=== PATIENT | female | born 1950 | race Caucasian/White ===

== ENCOUNTER 2017-03-23 11:13 | Inpatient (IN) | payer MEDICARE, MEDICAID ==
[~2017-03-23] VITALS: Ht 160 cm; Wt 57.5 kg
[~2017-03-23 11:13] MED LIST: ALBU2.5V13 NEB; ALEN70TA3 PO; ASCO500C15 PO; ATR0.5NEB IH; CALC-1051 PO; CARV-49 PO; DOCU-28 PO; HYDR-3964 PO; LEVO100T9 PO; SPIIN INH
[2017-03-23 11:48] LABS: BASOPHILS % (AUTO) 0.4 % (0-1); EOSINOPHILS # (AUTO) 0.3 X10'3 (0-0.9); EOSINOPHILS % (AUTO) 2.1 % (0-6); HEMATOCRIT 39.2 % (35.0-45.0); LYMPHOCYTES % (AUTO) 7.9 % (21-51); MEAN CORPUSCULAR HEMOGLOBIN 30.3 PG (27.0-31.0); MEAN CORPUSCULAR HGB CONC 33.2 % (33.0-36.5); MEAN CORPUSCULAR VOLUME 91.3 FL (78-98); MEAN PLATELET VOLUME 8.3 FL (7.4-10.4); MONOCYTES # (AUTO) 0.5 X10'3 (0-0.9); MONOCYTES % (AUTO) 4.5 % (2-12); NEUTROPHILS # (AUTO) 10.3 X10'3 (1.8-7.7); NEUTROPHILS % (AUTO) 85.1 % (42-75); PLATELET COUNT 169 X10'3 (140-440); RED BLOOD COUNT 4.29 X10'6 (4.20-5.60); RED CELL DISTRIBUTION WIDTH 13.2 % (11.5-14.5); WHITE BLOOD COUNT 12.1 X10'3 (4.5-11.0)
[2017-03-23 11:58] LABS: INR 1.1 INR; PARTIAL THROMBOPLASTIN TIME 30 SECONDS (22-32); PROTHROMBIN TIME 10.9 SECONDS (9.0-12.0)
[2017-03-23 12:03] LABS: ALANINE AMINOTRANSFERASE 16 U/L (12-78); ALBUMIN 3.2 G/DL (3.4-5.0); ALBUMIN/GLOBULIN RATIO 0.8 (1.1-1.5); ALKALINE PHOSPHATASE 122 IU/L (46-116); ANION GAP 8 (8-16); ASPARTATE AMINO TRANSFERASE 23 U/L (10-37); BILIRUBIN,TOTAL 1.1 MG/DL (0.1-1.0); BLOOD UREA NITROGEN 14 MG/DL (7-18); BUN/CREATININE RATIO 14.4 (6.6-38.0); CALCIUM 8.8 MG/DL (8.5-10.1); CHLORIDE 103 MMOL/L (99-107); CREATININE 0.97 MG/DL (0.40-0.90); GLUCOSE 124 MG/DL (70-104); POTASSIUM 3.7 MMOL/L (3.5-5.1); SODIUM 138 MMOL/L (135-145); TOTAL CARBON DIOXIDE 26.9 MMOL/L (24-32); TOTAL PROTEIN 7.3 G/DL (6.4-8.2); eGFR 57 ML/MIN
[2017-03-23] MEDS ORDERED: normal saline 1000ML IV soln IVB ONE (12:05)
[2017-03-23] MEDS ORDERED: ipratropium/albuterol 3ml nebule NEB ONE (12:05)
[2017-03-23] MEDS ORDERED: methylPREDNISolone sod succ 125mg/2ml vial IV ONE (12:05)
[2017-03-23 12:10] LABS: MAGNESIUM 1.8 MG/DL (1.5-2.4)
[2017-03-23] MEDS ORDERED: furosemide 10 MG/1 ML 10ml inj IV ONE (12:50)
[2017-03-23] MEDS ORDERED: normal saline 1000ml 1,000 ML IV SCH (13:08)
[2017-03-23] MEDS ORDERED: non-formulary drug (Alendronate Sodium (Fosamax) 1 TAB) PO SCH (13:10)
[2017-03-23] MEDS ORDERED: diphenhydrAMINE 50 mg/ml inj IV PRN (13:10)
[2017-03-23] MEDS ORDERED: diphenhydrAMINE 25mg capsule PO PRN (13:10)
[2017-03-23] MEDS ORDERED: metoclopramide 5 mg/ml inj IV PRN (13:10)
[2017-03-23] MEDS ORDERED: ondansetron/PF 4mg/2ml inj IV PRN (13:10)
[2017-03-23] MEDS ORDERED: acetaminophen 650mg rectal suppository RC PRN (13:10)
[2017-03-23] MEDS ORDERED: acetaminophen 325mg tablet PO PRN ×2 (13:10)
[2017-03-23] MEDS ORDERED: magnesium hydroxide 30ml (MOM) UD suspension PO PRN (13:10)
[2017-03-23] MEDS ORDERED: bisacodyl 10mg suppository rectal RC PRN (13:10)
[2017-03-23] MEDS ORDERED: mag hydrox/Alum hydrox/simeth 30ml oral suspension PO PRN (13:10)
[2017-03-23] MEDS ORDERED: cefTRIAXone 1g/NS 100ml IVPB 100 ML IV SCH (13:22)
[2017-03-23] MEDS: azithromycin 250mg tablet PO SCH (14:21)
[2017-03-23] MEDS: HYDROcodone/acetaminophen 5mg/325mg tablet PO PRN ×2 (14:21→23:50)
[2017-03-23] MEDS ORDERED: CLOP75TA15 PO (15:48)
[2017-03-23 16:13] VITALS: BP 153/93
[2017-03-23] MEDS: lactobacillus rhamnosus 10,000 MMU CELLS/CAPSULE PO SCH (17:51)
[2017-03-23] MEDS: ipratropium 0.5 MG/2.5ML nebule IH SCH ×2 (19:00→20:06)
[2017-03-23] MEDS: carVEDilol 3.125mg tablet PO SCH (19:38)
[2017-03-23] MEDS: methylPREDNISolone sod succ 125mg/2ml vial IV SCH (19:38)
[2017-03-23] MEDS: docusate sod 100mg capsule PO SCH (19:39)
[2017-03-23] MEDS: heparin, porcine 5000 units/ml vial SQ SCH (19:40)
[2017-03-23 20:08] VITALS: BP 125/79
[2017-03-23] MEDS ORDERED: temazepam 15mg capsule PO PRN (21:00)
[2017-03-24] VITALS: BP 126/71
[2017-03-24] MEDS: ipratropium/albuterol 3ml nebule NEB PRN (04:57)
[2017-03-24 05:12] LABS: BASOPHILS % (AUTO) 0.2 % (0-1); EOSINOPHILS # (AUTO) 0.1 X10'3 (0-0.9); EOSINOPHILS % (AUTO) 1.4 % (0-6); LYMPHOCYTES # (AUTO) 0.8 X10'3 (1.1-4.8); LYMPHOCYTES % (AUTO) 11.5 % (21-51); MEAN CORPUSCULAR HEMOGLOBIN 29.9 PG (27.0-31.0); MEAN CORPUSCULAR HGB CONC 32.6 % (33.0-36.5); MEAN CORPUSCULAR VOLUME 91.8 FL (78-98); MEAN PLATELET VOLUME 8.6 FL (7.4-10.4); MONOCYTES # (AUTO) 0.1 X10'3 (0-0.9); NEUTROPHILS # (AUTO) 6.2 X10'3 (1.8-7.7); NEUTROPHILS % (AUTO) 85.9 % (42-75); PLATELET COUNT 170 X10'3 (140-440); RED BLOOD COUNT 4.36 X10'6 (4.20-5.60); RED CELL DISTRIBUTION WIDTH 13.6 % (11.5-14.5); WHITE BLOOD COUNT 7.3 X10'3 (4.5-11.0)
[2017-03-24 05:53] LABS: ALANINE AMINOTRANSFERASE 15 U/L (12-78); ALBUMIN 2.8 G/DL (3.4-5.0); ALBUMIN/GLOBULIN RATIO 0.7 (1.1-1.5); ALKALINE PHOSPHATASE 116 IU/L (46-116); ANION GAP 9 (8-16); ASPARTATE AMINO TRANSFERASE 19 U/L (10-37); BILIRUBIN,TOTAL 0.7 MG/DL (0.1-1.0); BLOOD UREA NITROGEN 18 MG/DL (7-18); BUN/CREATININE RATIO 18.9 (6.6-38.0); CALCIUM 8.3 MG/DL (8.5-10.1); CHLORIDE 105 MMOL/L (99-107); CREATININE 0.95 MG/DL (0.40-0.90); GLUCOSE 148 MG/DL (70-104); POTASSIUM 3.6 MMOL/L (3.5-5.1); SODIUM 140 MMOL/L (135-145); TOTAL CARBON DIOXIDE 26.3 MMOL/L (24-32); TOTAL PROTEIN 6.8 G/DL (6.4-8.2); eGFR 59 ML/MIN
[2017-03-24 07:00] VITALS: BP_SYST 127
[2017-03-24] MEDS: ipratropium 0.5 MG/2.5ML nebule IH SCH ×4 (07:08→21:27)
[2017-03-24] MEDS ORDERED: furosemide 10 MG/1 ML 10ml inj IV SCH (08:00)
[2017-03-24] MEDS: docusate sod 100mg capsule PO SCH ×2 (08:00→20:53)
[2017-03-24] MEDS ORDERED: CefTRIAXone 2gm/NS 100ml IVPB 100 ML IV ONE (08:07)
[2017-03-24] MEDS: lactobacillus rhamnosus 10,000 MMU CELLS/CAPSULE PO SCH ×2 (08:15→17:41)
[2017-03-24] MEDS: methylPREDNISolone sod succ 125mg/2ml vial IV SCH ×2 (08:16→20:53)
[2017-03-24] MEDS: heparin, porcine 5000 units/ml vial SQ SCH ×2 (08:16→20:53)
[2017-03-24] MEDS: CefTRIAXone/dextrose 2GM bag 50 ML IV SCH (08:17)
[2017-03-24] MEDS: carVEDilol 3.125mg tablet PO SCH ×2 (08:17→20:52)
[2017-03-24] MEDS: azithromycin 250mg tablet PO SCH (08:17)
[2017-03-24] MEDS: pantoprazole 40mg Tablet.DR PO SCH (08:18)
[2017-03-24] MEDS: levoTHYROXINE 100mcg tablet PO SCH (08:18)
[2017-03-24 11:00] VITALS: BP 111/77
[2017-03-24 20:00] VITALS: BP 138/88
[2017-03-24] MEDS: HYDROcodone/acetaminophen 10/325mg tab PO PRN (23:43)
[2017-03-25] MEDS: methylPREDNISolone sod succ 125mg/2ml vial IV SCH ×4 (02:03→19:32)
[2017-03-25 06:12] LABS: BASOPHILS % (AUTO) 0.1 % (0-1); EOSINOPHILS # (AUTO) 0.2 X10'3 (0-0.9); EOSINOPHILS % (AUTO) 1.5 % (0-6); HEMATOCRIT 38.6 % (35.0-45.0); HEMOGLOBIN 12.6 g/dl (12.0-16.0); LYMPHOCYTES # (AUTO) 0.7 X10'3 (1.1-4.8); LYMPHOCYTES % (AUTO) 5.7 % (21-51); MEAN CORPUSCULAR HEMOGLOBIN 29.9 PG (27.0-31.0); MEAN CORPUSCULAR HGB CONC 32.6 % (33.0-36.5); MEAN CORPUSCULAR VOLUME 91.8 FL (78-98); MONOCYTES # (AUTO) 0.2 X10'3 (0-0.9); MONOCYTES % (AUTO) 1.6 % (2-12); NEUTROPHILS % (AUTO) 91.1 % (42-75); PLATELET COUNT 184 X10'3 (140-440); RED CELL DISTRIBUTION WIDTH 13.3 % (11.5-14.5); WHITE BLOOD COUNT 12.1 X10'3 (4.5-11.0)
[2017-03-25 06:44] LABS: ALANINE AMINOTRANSFERASE 7 U/L (12-78); ALBUMIN 2.7 G/DL (3.4-5.0); ALBUMIN/GLOBULIN RATIO 0.7 (1.1-1.5); ALKALINE PHOSPHATASE 109 IU/L (46-116); ANION GAP 8 (8-16); ASPARTATE AMINO TRANSFERASE 14 U/L (10-37); BILIRUBIN,TOTAL 0.4 MG/DL (0.1-1.0); BLOOD UREA NITROGEN 22 MG/DL (7-18); CALCIUM 8.5 MG/DL (8.5-10.1); CHLORIDE 105 MMOL/L (99-107); CREATININE 0.88 MG/DL (0.40-0.90); GLUCOSE 143 MG/DL (70-104); POTASSIUM 3.6 MMOL/L (3.5-5.1); SODIUM 141 MMOL/L (135-145); TOTAL CARBON DIOXIDE 28.5 MMOL/L (24-32); TOTAL PROTEIN 6.5 G/DL (6.4-8.2); eGFR 64 ML/MIN
[2017-03-25] MEDS: ipratropium 0.5 MG/2.5ML nebule IH SCH ×3 (07:30→15:04)
[2017-03-25] MEDS: lactobacillus rhamnosus 10,000 MMU CELLS/CAPSULE PO SCH (07:30)
[2017-03-25 07:53] VITALS: BP 142/88
[2017-03-25] MEDS ORDERED: CefTRIAXone 2gm/NS 100ml IVPB 100 ML IV ONE (08:38)
[2017-03-25] MEDS: furosemide 10 MG/1 ML 10ml inj IV SCH (08:51)
[2017-03-25] MEDS: levoTHYROXINE 100mcg tablet PO SCH (08:52)
[2017-03-25] MEDS: heparin, porcine 5000 units/ml vial SQ SCH ×2 (08:52→19:33)
[2017-03-25] MEDS: docusate sod 100mg capsule PO SCH ×2 (08:53→19:32)
[2017-03-25] MEDS: pantoprazole 40mg Tablet.DR PO SCH (08:53)
[2017-03-25] MEDS: azithromycin 250mg tablet PO SCH (08:53)
[2017-03-25] MEDS: carVEDilol 3.125mg tablet PO SCH ×2 (08:53→19:32)
[2017-03-25] MEDS: CefTRIAXone/dextrose 2GM bag 50 ML IV SCH (08:54)
[2017-03-25] MEDS ORDERED: CefTRIAXone 2gm/D5W 50ml ADVTG 50 ML IV SCH (19:44)
[2017-03-25] MEDS: ipratropium/albuterol 3ml nebule NEB PRN ×2 (19:55→19:56)
[2017-03-25 20:00] VITALS: BP 146/104
[2017-03-25] MEDS: HYDROcodone/acetaminophen 10/325mg tab PO PRN (21:49)
[2017-03-26 00:57] VITALS: BP 127/84
[2017-03-26] MEDS: methylPREDNISolone sod succ 125mg/2ml vial IV SCH ×3 (01:24→14:00)
[2017-03-26 05:54] LABS: BASOPHILS % (AUTO) 0.1 % (0-1); EOSINOPHILS # (AUTO) 0.1 X10'3 (0-0.9); EOSINOPHILS % (AUTO) 1.1 % (0-6); HEMATOCRIT 40.1 % (35.0-45.0); HEMOGLOBIN 13.1 g/dl (12.0-16.0); LYMPHOCYTES # (AUTO) 0.6 X10'3 (1.1-4.8); LYMPHOCYTES % (AUTO) 4.9 % (21-51); MEAN CORPUSCULAR HGB CONC 32.7 % (33.0-36.5); MEAN CORPUSCULAR VOLUME 91.7 FL (78-98); MEAN PLATELET VOLUME 8.7 FL (7.4-10.4); MONOCYTES # (AUTO) 0.3 X10'3 (0-0.9); MONOCYTES % (AUTO) 2.3 % (2-12); NEUTROPHILS # (AUTO) 10.4 X10'3 (1.8-7.7); NEUTROPHILS % (AUTO) 91.6 % (42-75); PLATELET COUNT 204 X10'3 (140-440); RED BLOOD COUNT 4.37 X10'6 (4.20-5.60); RED CELL DISTRIBUTION WIDTH 13.4 % (11.5-14.5); WHITE BLOOD COUNT 11.4 X10'3 (4.5-11.0)
[2017-03-26] MEDS: ipratropium 0.5 MG/2.5ML nebule IH SCH ×3 (07:04→14:24)
[2017-03-26 07:21] LABS: ALANINE AMINOTRANSFERASE 18 U/L (12-78); ALBUMIN 2.9 G/DL (3.4-5.0); ALBUMIN/GLOBULIN RATIO 0.8 (1.1-1.5); ANION GAP 11 (8-16); ASPARTATE AMINO TRANSFERASE 20 U/L (10-37); BILIRUBIN,TOTAL 0.4 MG/DL (0.1-1.0); BLOOD UREA NITROGEN 30 MG/DL (7-18); BUN/CREATININE RATIO 28.6 (6.6-38.0); CALCIUM 8.3 MG/DL (8.5-10.1); CHLORIDE 104 MMOL/L (99-107); CREATININE 1.05 MG/DL (0.40-0.90); GLUCOSE 140 MG/DL (70-104); POTASSIUM 3.6 MMOL/L (3.5-5.1); SODIUM 143 MMOL/L (135-145); TOTAL PROTEIN 6.7 G/DL (6.4-8.2); eGFR 52 ML/MIN
[2017-03-26 07:22] LABS: ALKALINE PHOSPHATASE 109 IU/L (46-116)
[2017-03-26 07:23] VITALS: BP 156/99
[2017-03-26] MEDS ORDERED: LACTOBACILLUS RHAMNOSUS GG 15 billion unit sprinkle caps PO SCH (07:30)
[2017-03-26] MEDS: furosemide 10 MG/1 ML 10ml inj IV SCH (08:00)
[2017-03-26] MEDS: docusate sod 100mg capsule PO SCH (08:00)
[2017-03-26] MEDS: pantoprazole 40mg Tablet.DR PO SCH (10:15)
[2017-03-26] MEDS: carVEDilol 3.125mg tablet PO SCH (10:17)
[2017-03-26] MEDS: levoTHYROXINE 100mcg tablet PO SCH (10:18)
[2017-03-26] MEDS: azithromycin 250mg tablet PO SCH (10:18)
[2017-03-26] MEDS: heparin, porcine 5000 units/ml vial SQ SCH (10:19)
[2017-03-26 11:36] VITALS: BP 147/88
[2017-03-26] MEDS ORDERED: PRED10TA23 PO (13:37)
[2017-03-26] MEDS ORDERED: LEVO500T2 PO (13:37)
== END 2017-03-26 15:16 | disposition home health service (06) | DRG 291 ==
LOC: ER 11:14 → ED HOLD 13:08 → EDBEDREQ 14:55 → SUR 3N 15:29
PROVIDERS: ADMIT Family Medicine; ATTEND Family Medicine
DX: I11.0 Hypertensive heart disease with heart failure (principal); J96.21 Acute and chronic respiratory failure with hypoxia; R65.10 Systemic inflammatory response syndrome (SIRS) of non-infectious origin without acute organ dysfunction; J44.1 Chronic obstructive pulmonary disease with (acute) exacerbation; J44.0 Chronic obstructive pulmonary disease with (acute) lower respiratory infection; Z99.81 Dependence on supplemental oxygen; I50.43 Acute on chronic combined systolic (congestive) and diastolic (congestive) heart failure; J20.9 Acute bronchitis, unspecified; E03.9 Hypothyroidism, unspecified; K52.9 Noninfective gastroenteritis and colitis, unspecified; I25.10 Atherosclerotic heart disease of native coronary artery without angina pectoris; Z60.2 Problems related to living alone; I25.2 Old myocardial infarction; Z79.899 Other long term (current) drug therapy; Z82.49 Family history of ischemic heart disease and other diseases of the circulatory system
CPT/HCPCS: 36415; 71045; 80053; 83735; 83880; 84443; 85025; 85610; 85730; 87070; 93005; 93306; 94640; 94760; 96374; 99285; J0696; J1644; J1940; J2930; J7030

== ENCOUNTER 2017-06-20 10:22 | Inpatient (IN) | payer MEDICARE, MEDICAID ==
[~2017-06-20] VITALS: Ht 160 cm; Wt 59.2 kg
[~2017-06-20 10:22] MED LIST changes: +CLOP75TA15 PO; +clopidogrel 75mg tablet PO SCH
[2017-06-20] MEDS ORDERED: aspirin 81mg tab.chew PO ONE (10:30)
[2017-06-20 10:48] LABS: BASOPHILS # (AUTO) 0.1 X10'3 (0-0.2); BASOPHILS % (AUTO) 1.1 % (0-1); EOSINOPHILS # (AUTO) 0.3 X10'3 (0-0.9); EOSINOPHILS % (AUTO) 6.3 % (0-6); HEMATOCRIT 39.4 % (35.0-45.0); HEMOGLOBIN 12.9 g/dl (12.0-16.0); LYMPHOCYTES % (AUTO) 18.7 % (21-51); MEAN CORPUSCULAR HEMOGLOBIN 27.1 PG (27.0-31.0); MEAN CORPUSCULAR HGB CONC 32.7 % (33.0-36.5); MEAN CORPUSCULAR VOLUME 82.9 FL (78-98); MEAN PLATELET VOLUME 9.3 FL (7.4-10.4); MONOCYTES # (AUTO) 0.3 X10'3 (0-0.9); MONOCYTES % (AUTO) 5.7 % (2-12); NEUTROPHILS # (AUTO) 3.6 X10'3 (1.8-7.7); NEUTROPHILS % (AUTO) 68.2 % (42-75); PLATELET COUNT 124 X10'3 (140-440); RED BLOOD COUNT 4.75 X10'6 (4.20-5.60); WHITE BLOOD COUNT 5.3 X10'3 (4.5-11.0)
[2017-06-20 10:59] LABS: INR 1.1 INR; PARTIAL THROMBOPLASTIN TIME 26 SECONDS (22-32); PROTHROMBIN TIME 11.4 SECONDS (9.0-12.0)
[2017-06-20 11:10] LABS: ALANINE AMINOTRANSFERASE 23 U/L (12-78); ALBUMIN 3.6 G/DL (3.4-5.0); ALKALINE PHOSPHATASE 114 IU/L (46-116); ANION GAP 10 (8-16); ASPARTATE AMINO TRANSFERASE 34 U/L (10-37); BILIRUBIN,TOTAL 1.1 MG/DL (0.1-1.0); BLOOD UREA NITROGEN 27 MG/DL (7-18); BUN/CREATININE RATIO 23.1 (6.6-38.0); CALCIUM 8.6 MG/DL (8.5-10.1); CHLORIDE 108 MMOL/L (99-107); CREATININE 1.17 MG/DL (0.40-0.90); GLUCOSE 106 MG/DL (70-104); MAGNESIUM 1.8 MG/DL (1.5-2.4); POTASSIUM 3.3 MMOL/L (3.5-5.1); SODIUM 144 MMOL/L (135-145); TOTAL CARBON DIOXIDE 26.3 MMOL/L (24-32); TOTAL PROTEIN 7.3 G/DL (6.4-8.2); eGFR 46 ML/MIN
[2017-06-20] MEDS ORDERED: potassium Cl 10 mEq/100mL bag IV ONE (11:15)
[2017-06-20] MEDS ORDERED: furosemide 10 MG/1 ML 10ml inj IV ONE (11:15)
[2017-06-20] MEDS ORDERED: nitroGLYCERIN 0.4mg SUBLingual tab SL PRN ×2 (11:20→13:10)
[2017-06-20] MEDS ORDERED: potassium 10mEq/100ml NS w/LIDOcaine (10mg/bag) IV SCH (11:30)
[2017-06-20] MEDS ORDERED: magnesium hydroxide 30ml (MOM) UD suspension PO PRN (12:55)
[2017-06-20] MEDS ORDERED: acetaminophen 325mg tablet PO PRN (12:55)
[2017-06-20] MEDS ORDERED: mag hydrox/Alum hydrox/simeth 30ml oral suspension PO PRN (12:55)
[2017-06-20] MEDS ORDERED: ondansetron/PF 4mg/2ml inj IV PRN (12:55)
[2017-06-20] MEDS: levoTHYROXINE 100mcg tablet PO SCH (13:45)
[2017-06-20] MEDS ORDERED: lisinopril 10 MG tablet PO SCH (13:50)
[2017-06-20] MEDS ORDERED: CARV-49 PO (13:53)
[2017-06-20] MEDS: albuterol 2.5 MG/3 ML nebule NEB SCH ×2 (14:00→22:09)
[2017-06-20] MEDS: ipratropium/albuterol 3ml nebule NEB SCH ×2 (15:44→22:09)
[2017-06-20 15:45] VITALS: BP 135/80
[2017-06-20] MEDS ORDERED: ipratropium 0.5 MG/2.5ML nebule IH SCH ×2 (16:00)
[2017-06-20 20:00] VITALS: BP 134/56
[2017-06-20] MEDS ORDERED: carvedilol 6.25mg tablet PO SCH (20:00)
[2017-06-20] MEDS ORDERED: non-formulary drug (Ascorbic Acid (Vitamin C) 1 CAP) PO SCH (20:00)
[2017-06-20] MEDS: furosemide 40mg/4ml inj IV SCH (20:32)
[2017-06-20] MEDS: docusate sod 100mg capsule PO SCH (20:32)
[2017-06-20] MEDS: ascorbic acid 500mg tablet PO SCH (20:32)
[2017-06-20] MEDS: HYDROcodone/acetaminophen 5mg/325mg tablet PO PRN (21:12)
[2017-06-20 23:00] VITALS: BP 112/64
[2017-06-21 03:43] LABS: BASOPHILS # (AUTO) 0.1 X10'3 (0-0.2); BASOPHILS % (AUTO) 1.5 % (0-1); EOSINOPHILS # (AUTO) 0.4 X10'3 (0-0.9); EOSINOPHILS % (AUTO) 5.7 % (0-6); HEMATOCRIT 39.7 % (35.0-45.0); LYMPHOCYTES # (AUTO) 1.8 X10'3 (1.1-4.8); LYMPHOCYTES % (AUTO) 28.1 % (21-51); MEAN CORPUSCULAR HEMOGLOBIN 27.1 PG (27.0-31.0); MEAN CORPUSCULAR HGB CONC 32.7 % (33.0-36.5); MEAN CORPUSCULAR VOLUME 82.7 FL (78-98); MEAN PLATELET VOLUME 9.4 FL (7.4-10.4); MONOCYTES # (AUTO) 0.6 X10'3 (0-0.9); MONOCYTES % (AUTO) 8.9 % (2-12); NEUTROPHILS # (AUTO) 3.5 X10'3 (1.8-7.7); NEUTROPHILS % (AUTO) 55.8 % (42-75); PLATELET COUNT 132 X10'3 (140-440); RED BLOOD COUNT 4.81 X10'6 (4.20-5.60); RED CELL DISTRIBUTION WIDTH 16.6 % (11.5-14.5); WHITE BLOOD COUNT 6.4 X10'3 (4.5-11.0)
[2017-06-21 03:58] LABS: ALANINE AMINOTRANSFERASE 22 U/L (12-78); ALBUMIN 3.5 G/DL (3.4-5.0); ALKALINE PHOSPHATASE 112 IU/L (46-116); ANION GAP 10 (8-16); ASPARTATE AMINO TRANSFERASE 34 U/L (10-37); BILIRUBIN,TOTAL 1.4 MG/DL (0.1-1.0); BLOOD UREA NITROGEN 27 MG/DL (7-18); BUN/CREATININE RATIO 23.7 (6.6-38.0); CALCIUM 8.8 MG/DL (8.5-10.1); CHLORIDE 105 MMOL/L (99-107); CREATININE 1.14 MG/DL (0.40-0.90); GLUCOSE 87 MG/DL (70-104); MAGNESIUM 1.5 MG/DL (1.5-2.4); SODIUM 145 MMOL/L (135-145); TOTAL CARBON DIOXIDE 30.4 MMOL/L (24-32); eGFR 48 ML/MIN
[2017-06-21] MEDS ORDERED: potassium Cl 20 mEq SR tablet PO PRN (04:15)
[2017-06-21] MEDS ORDERED: potassium Cl 40MEQ/NS 500ml 500 ML IV PRN ×2 (04:15)
[2017-06-21] MEDS: potassium Cl 20 mEq SR tablet PO PRN ×3 (04:38→13:40)
[2017-06-21 07:00] VITALS: BP 121/62
[2017-06-21] MEDS: levoTHYROXINE 100mcg tablet PO SCH (07:35)
[2017-06-21] MEDS: ascorbic acid 500mg tablet PO SCH ×2 (07:35→19:12)
[2017-06-21] MEDS: furosemide 40mg/4ml inj IV SCH ×2 (07:35→19:11)
[2017-06-21] MEDS: docusate sod 100mg capsule PO SCH ×2 (07:35→19:12)
[2017-06-21] MEDS: calcium carbonate/vitamin D3 tablet PO SCH (07:35)
[2017-06-21] MEDS: enoxaparin 40mg/0.4ml syringe SQ SCH (07:49)
[2017-06-21] MEDS ORDERED: non-formulary drug (Calcium Carbonate/Vitamin D3 (Calcium 500 + D Tablet) 1 TAB) PO SCH (08:00)
[2017-06-21] MEDS: ipratropium/albuterol 3ml nebule NEB SCH ×3 (08:45→20:26)
[2017-06-21 11:00] VITALS: BP 121/62
[2017-06-21] MEDS: HYDROcodone/acetaminophen 5mg/325mg tablet PO PRN ×2 (13:43→21:28)
[2017-06-21] MEDS: magnesium oxide 400mg tablet PO SCH (19:12)
[2017-06-21 20:00] VITALS: BP 115/58
[2017-06-22] VITALS: BP 104/63
[2017-06-22] MEDS: HYDROcodone/acetaminophen 5mg/325mg tablet PO PRN (03:29)
[2017-06-22 05:11] LABS: BASOPHILS # (AUTO) 0.1 X10'3 (0-0.2); BASOPHILS % (AUTO) 1.4 % (0-1); EOSINOPHILS # (AUTO) 0.3 X10'3 (0-0.9); EOSINOPHILS % (AUTO) 5.4 % (0-6); HEMATOCRIT 36.8 % (35.0-45.0); HEMOGLOBIN 12.2 g/dl (12.0-16.0); LYMPHOCYTES # (AUTO) 2.1 X10'3 (1.1-4.8); LYMPHOCYTES % (AUTO) 33.8 % (21-51); MEAN CORPUSCULAR HGB CONC 33.2 % (33.0-36.5); MEAN CORPUSCULAR VOLUME 81.1 FL (78-98); MEAN PLATELET VOLUME 9.4 FL (7.4-10.4); MONOCYTES # (AUTO) 0.7 X10'3 (0-0.9); MONOCYTES % (AUTO) 11.4 % (2-12); PLATELET COUNT 129 X10'3 (140-440); RED BLOOD COUNT 4.54 X10'6 (4.20-5.60); RED CELL DISTRIBUTION WIDTH 17.1 % (11.5-14.5); WHITE BLOOD COUNT 6.2 X10'3 (4.5-11.0)
[2017-06-22 05:31] LABS: ALANINE AMINOTRANSFERASE 19 U/L (12-78); ALBUMIN 3.1 G/DL (3.4-5.0); ALKALINE PHOSPHATASE 99 IU/L (46-116); ANION GAP 8 (8-16); ASPARTATE AMINO TRANSFERASE 32 U/L (10-37); BILIRUBIN,TOTAL 1.5 MG/DL (0.1-1.0); BLOOD UREA NITROGEN 31 MG/DL (7-18); BUN/CREATININE RATIO 23.7 (6.6-38.0); CALCIUM 8.9 MG/DL (8.5-10.1); CHLORIDE 101 MMOL/L (99-107); CREATININE 1.31 MG/DL (0.40-0.90); GLUCOSE 82 MG/DL (70-104); MAGNESIUM 1.6 MG/DL (1.5-2.4); SODIUM 142 MMOL/L (135-145); TOTAL CARBON DIOXIDE 32.8 MMOL/L (24-32); TOTAL PROTEIN 6.2 G/DL (6.4-8.2); eGFR 40 ML/MIN
[2017-06-22] MEDS: ipratropium/albuterol 3ml nebule NEB SCH (07:24)
[2017-06-22 08:00] VITALS: BP 110/61
[2017-06-22] MEDS: docusate sod 100mg capsule PO SCH (08:00)
[2017-06-22] MEDS ORDERED: furosemide 40mg tablet PO SCH (08:00)
[2017-06-22] MEDS: calcium carbonate/vitamin D3 tablet PO SCH (09:19)
[2017-06-22] MEDS: magnesium oxide 400mg tablet PO SCH (09:19)
[2017-06-22] MEDS: ascorbic acid 500mg tablet PO SCH (09:19)
[2017-06-22] MEDS: levoTHYROXINE 100mcg tablet PO SCH (09:20)
[2017-06-22] MEDS: enoxaparin 40mg/0.4ml syringe SQ SCH (09:21)
[2017-06-22 11:00] VITALS: BP 95/66
[2017-06-22] MEDS ORDERED: ipratropium/albuterol 3ml nebule NEB PRN (11:20)
[2017-06-22 13:45] VITALS: BP 104/67
[2017-06-22] MEDS ORDERED: FURO40TA4 PO (19:17)
== END 2017-06-22 20:55 | disposition home or self-care (01) | DRG 293 ==
LOC: ER 10:23 → ED HOLD 12:54 → EDBEDREQ 14:44 → SUR 3N 15:22
PROVIDERS: ADMIT Emergency Medicine; ATTEND Family Medicine
DX: I11.0 Hypertensive heart disease with heart failure (principal); E86.0 Dehydration; I08.1 Rheumatic disorders of both mitral and tricuspid valves; I27.20 Pulmonary hypertension, unspecified; Z99.81 Dependence on supplemental oxygen; I50.33 Acute on chronic diastolic (congestive) heart failure; J44.9 Chronic obstructive pulmonary disease, unspecified; I50.810 Right heart failure, unspecified; Z60.2 Problems related to living alone; E03.9 Hypothyroidism, unspecified; R21 Rash and other nonspecific skin eruption; E87.6 Hypokalemia; N63.0 Unspecified lump in unspecified breast; I25.2 Old myocardial infarction; Z79.899 Other long term (current) drug therapy; Z79.01 Long term (current) use of anticoagulants; Z79.82 Long term (current) use of aspirin; Z87.891 Personal history of nicotine dependence
CPT/HCPCS: 36415; 71045; 76642; 80053; 83735; 83880; 84132; 84443; 84484; 85025; 85610; 85730; 87070; 93005; 93306; 93970; 94640; 94760; 96361; 96374; 99285; J1650; J1940; J3480

== ENCOUNTER 2018-01-10 17:27 | Emergency (ER) | payer MEDICARE, MEDICAID ==
[~2018-01-10] VITALS: Ht 157.5 cm; Wt 67.0 kg
[~2018-01-10 17:27] MED LIST changes: -CLOP75TA15 PO; +FURO40TA4 PO; -clopidogrel 75mg tablet PO SCH
[2018-01-10] MEDS ORDERED: ketorolac tromethamine 15mg/ml inj. IV ONE (17:50)
[2018-01-10 18:05] LABS: BASOPHILS % (AUTO) 0.6 % (0-1); EOSINOPHILS # (AUTO) 0.2 X10'3 (0-0.9); EOSINOPHILS % (AUTO) 3.9 % (0-6); HEMATOCRIT 42.1 % (35.0-45.0); HEMOGLOBIN 13.4 g/dl (12.0-16.0); LYMPHOCYTES # (AUTO) 1.3 X10'3 (1.1-4.8); LYMPHOCYTES % (AUTO) 24.3 % (21-51); MEAN CORPUSCULAR HEMOGLOBIN 27.5 PG (27.0-31.0); MEAN CORPUSCULAR HGB CONC 31.8 % (33.0-36.5); MEAN CORPUSCULAR VOLUME 86.4 FL (78-98); MEAN PLATELET VOLUME 9.4 FL (7.4-10.4); MONOCYTES # (AUTO) 0.5 X10'3 (0-0.9); MONOCYTES % (AUTO) 9.3 % (2-12); NEUTROPHILS # (AUTO) 3.4 X10'3 (1.8-7.7); NEUTROPHILS % (AUTO) 61.9 % (42-75); PLATELET COUNT 110 X10'3 (140-440); RED BLOOD COUNT 4.87 X10'6 (4.20-5.60); RED CELL DISTRIBUTION WIDTH 19.7 % (11.5-14.5); WHITE BLOOD COUNT 5.5 X10'3 (4.5-11.0)
[2018-01-10 18:19] LABS: ALANINE AMINOTRANSFERASE 23 U/L (12-78); ALBUMIN 3.7 G/DL (3.4-5.0); ALKALINE PHOSPHATASE 173 IU/L (46-116); ANION GAP 10 (8-16); ASPARTATE AMINO TRANSFERASE 33 U/L (10-37); BILIRUBIN,TOTAL 1.4 MG/DL (0.1-1.0); BLOOD UREA NITROGEN 24 MG/DL (7-18); BUN/CREATININE RATIO 21.2 (6.6-38.0); CALCIUM 8.7 MG/DL (8.5-10.1); CHLORIDE 102 MMOL/L (99-107); CREATININE 1.13 MG/DL (0.40-0.90); GLUCOSE 82 MG/DL (70-104); POTASSIUM 4.3 MMOL/L (3.5-5.1); SODIUM 139 MMOL/L (135-145); TOTAL CARBON DIOXIDE 26.8 MMOL/L (24-32); TOTAL PROTEIN 7.3 G/DL (6.4-8.2); eGFR 48 ML/MIN
[2018-01-10 18:23] LABS: CLARITY,URINE SLIGHTLY CLOUDY (Clear); COLOR,URINE YELLOW (Yellow); GLUCOSE, URINE NEGATIVE (Neg); KETONES,URINE NEGATIVE (Neg); LEUKOCYTE ESTERASE ,URINE NEGATIVE (Neg); NITRITES, URINE NEGATIVE (Neg); OCCULT BLOOD,URINE TRACE-INTACT (Neg); PROTEIN,URINE 100 mg/dl (Neg); UA COLLECTION TYPE CLN CATCH MIDSTREAM
[2018-01-10 18:34] LABS: MUCUS STRANDS NONE SEEN /LPF (Neg); SQUAMOUS EPITHELIAL CELL,UR FEW /LPF (FEW)
[2018-01-10 18:35] LABS: BACTERIA,URINE FEW /HPF (Neg); RBC,URINE 0-2 /HPF (0-2); WBC,URINE 0-4 /HPF (0-4)
[2018-01-10] MEDS ORDERED: diazepam 5mg tablet PO ONE (18:50)
[2018-01-10] MEDS ORDERED: TIZA2TAB4 PO (18:53)
[2018-01-10] MEDS ORDERED: HYDR-3965 PO (18:53)
[2018-01-10 19:00] VITALS: BP 161/80
[2018-01-10 20:25] LABS: ANISOCYTOSIS 2+; LARGE PLATELETS FEW; PLATELET ESTIMATE DECREASED
== END 2018-01-10 21:21 | disposition home or self-care (01) ==
LOC: ER 17:28
DX: M54.5 Low back pain (principal); I11.0 Hypertensive heart disease with heart failure; I50.9 Heart failure, unspecified; I25.2 Old myocardial infarction; J44.9 Chronic obstructive pulmonary disease, unspecified; Z79.899 Other long term (current) drug therapy
CPT/HCPCS: 36415; 71045; 80053; 81001; 83880; 85025; 96374; 99285; J1885; P9612

== ENCOUNTER 2018-02-19 12:51 | Emergency (ER) | payer MEDICARE, MEDICAID ==
[~2018-02-19] VITALS: Ht 160 cm; Wt 70.5 kg
[~2018-02-19 12:51] MED LIST changes: +TIZA2TAB4 PO
[2018-02-19] MEDS ORDERED: HYDROcodone/acetaminophen 5mg/325mg tablet PO ONE (13:10)
[2018-02-19 14:47] VITALS: BP 150/72
== END 2018-02-19 15:38 | disposition home or self-care (01) ==
LOC: ER 12:51
DX: S32.018A Other fracture of first lumbar vertebra, initial encounter for closed fracture (principal); I11.0 Hypertensive heart disease with heart failure; I50.9 Heart failure, unspecified; I25.2 Old myocardial infarction; J44.9 Chronic obstructive pulmonary disease, unspecified; Z79.899 Other long term (current) drug therapy; W18.49XA Other slipping, tripping and stumbling without falling, initial encounter; Y93.89 Activity, other specified; Y92.89 Other specified places as the place of occurrence of the external cause; Y99.9 Unspecified external cause status
CPT/HCPCS: 72128; 72131; 99284

== ENCOUNTER 2018-02-22 09:37 | Emergency (ER) | payer MEDICARE, MEDICAID ==
[~2018-02-22] VITALS: Ht 160 cm; Wt 68.2 kg
[2018-02-22 09:47] VITALS: BP 147/93
[2018-02-22] MEDS ORDERED: HYDROcodone/acetaminophen 10/325mg tab PO ONE (09:55)
[2018-02-22] MEDS ORDERED: morphine 4 MG/ML inj SYRINge IM ONE (09:55)
[2018-02-22] MEDS ORDERED: HYDR-4353 PO (10:38)
== END 2018-02-22 13:28 | disposition home or self-care (01) ==
LOC: ER 09:37
DX: S32.018D Other fracture of first lumbar vertebra, subsequent encounter for fracture with routine healing (principal); S30.0XXD Contusion of lower back and pelvis, subsequent encounter; I11.0 Hypertensive heart disease with heart failure; I50.9 Heart failure, unspecified; I25.2 Old myocardial infarction; J44.9 Chronic obstructive pulmonary disease, unspecified; Z79.899 Other long term (current) drug therapy; W19.XXXD Unspecified fall, subsequent encounter
CPT/HCPCS: 96372; 99284; J2270

== ENCOUNTER 2018-02-27 15:26 | Inpatient (IN) | payer MEDICARE, MEDICAID ==
[~2018-02-27] VITALS: Ht 160 cm; Wt 64.2 kg
[~2018-02-27 15:26] MED LIST changes: +HYDR-4353 PO
[2018-02-27] MEDS ORDERED: normal saline 1000ML IV soln IVB ONE (15:35)
[2018-02-27 15:53] LABS: BASOPHILS % (AUTO) 0.6 % (0-1); EOSINOPHILS % (AUTO) 0.7 % (0-6); HEMATOCRIT 39.7 % (35.0-45.0); HEMOGLOBIN 12.5 g/dl (12.0-16.0); LYMPHOCYTES # (AUTO) 0.9 X10'3 (1.1-4.8); LYMPHOCYTES % (AUTO) 19.3 % (21-51); MEAN CORPUSCULAR HEMOGLOBIN 27.6 PG (27.0-31.0); MEAN CORPUSCULAR HGB CONC 31.5 % (33.0-36.5); MEAN CORPUSCULAR VOLUME 87.7 FL (78-98); MEAN PLATELET VOLUME 9.1 FL (7.4-10.4); MONOCYTES # (AUTO) 0.3 X10'3 (0-0.9); MONOCYTES % (AUTO) 6.2 % (2-12); NEUTROPHILS # (AUTO) 3.4 X10'3 (1.8-7.7); NEUTROPHILS % (AUTO) 73.2 % (42-75); PLATELET COUNT 118 X10'3 (140-440); RED BLOOD COUNT 4.53 X10'6 (4.20-5.60); RED CELL DISTRIBUTION WIDTH 19.3 % (11.5-14.5); WHITE BLOOD COUNT 4.7 X10'3 (4.5-11.0)
[2018-02-27 16:08] LABS: ALANINE AMINOTRANSFERASE 15 U/L (12-78); ALBUMIN 3.3 G/DL (3.4-5.0); ALBUMIN/GLOBULIN RATIO 0.9 (1.1-1.5); ALKALINE PHOSPHATASE 162 IU/L (46-116); ANION GAP 13 (8-16); ASPARTATE AMINO TRANSFERASE 46 U/L (10-37); BILIRUBIN,TOTAL 1.5 MG/DL (0.1-1.0); BLOOD UREA NITROGEN 9 MG/DL (7-18); BUN/CREATININE RATIO 9.6 (6.6-38.0); CALCIUM 8.2 MG/DL (8.5-10.1); CHLORIDE 103 MMOL/L (99-107); CREATININE 0.94 MG/DL (0.40-0.90); GLUCOSE 85 MG/DL (70-104); SODIUM 142 MMOL/L (135-145); TOTAL CARBON DIOXIDE 26.2 MMOL/L (24-32); TOTAL PROTEIN 6.8 G/DL (6.4-8.2); eGFR 59 ML/MIN
[2018-02-27 16:19] LABS: MAGNESIUM 1.5 MG/DL (1.5-2.4); POTASSIUM 3.2 MMOL/L (3.5-5.1)
[2018-02-27 16:25] LABS: CLARITY,URINE CLEAR (Clear); COLOR,URINE YELLOW (Yellow); GLUCOSE, URINE NEGATIVE (Neg); KETONES,URINE TRACE mg/dl (Neg); LEUKOCYTE ESTERASE ,URINE NEGATIVE (Neg); NITRITES, URINE NEGATIVE (Neg); OCCULT BLOOD,URINE MODERATE (Neg); PH,URINE 7.5 (4.8-8.0); PROTEIN,URINE 100 mg/dl (Neg)
[2018-02-27 16:30] LABS: UA COLLECTION TYPE NON-SPECIFIED
[2018-02-27 16:31] LABS: BACTERIA,URINE NONE SEEN /HPF (Neg); MUCUS STRANDS NONE SEEN /LPF (Neg); RBC,URINE 20-50 /HPF (0-2); SQUAMOUS EPITHELIAL CELL,UR FEW /LPF (FEW); TRANSITIONAL EPI CELLS,URINE FEW /HPF; WBC,URINE 0-4 /HPF (0-4)
[2018-02-27] MEDS ORDERED: potassium Cl 20 mEq SR tablet PO STA (16:40)
[2018-02-27] MEDS ORDERED: potassium Cl 20 mEq SR tablet PO PRN ×2 (16:45)
[2018-02-27] MEDS ORDERED: magnesium hydroxide 30ml (MOM) UD suspension PO PRN (16:45)
[2018-02-27] MEDS ORDERED: potassium Cl 40MEQ/NS 500ml 500 ML IV PRN ×2 (16:45)
[2018-02-27] MEDS ORDERED: ondansetron/PF 4mg/2ml inj IV PRN (16:45)
[2018-02-27] MEDS ORDERED: magnesium 4gm in 100ml NS 100 ML IV PRN (16:45)
[2018-02-27] MEDS ORDERED: acetaminophen 325mg tablet PO PRN (16:45)
[2018-02-27] MEDS ORDERED: mag hydrox/Alum hydrox/simeth 30ml oral suspension PO PRN (16:45)
[2018-02-27] MEDS ORDERED: ipratropium/albuterol 3ml nebule NEB PRN (16:45)
[2018-02-27] MEDS ORDERED: morphine 10mg/0.5ml (conc. morphine) oral syringe PO PRN (16:45)
[2018-02-27 17:06] LABS: ABG BASE EXCESS 1.8 mmol/L (-2.0-3.0); ABG HCO3 24.7 mmol/L (22.0-26.0); ABG OXYGEN SATURATION 90.9 % (95-98); ABG PCO2 (T) 33.4 mmHg (32.0-45.0); ABG PH (T) 7.486 (7.350-7.450); ABG PO2 (T) 59.8 mmHg (83-108); ALLEN'S TEST Positive; FCOHb 1.5 % (0.5-1.5); FLOW 3 L/min; FMetHb 0.3 % (0.3-1.12); FO2Hb 89.3 % (94-100); RESPIRATORY RATE (OBSERVED) 16 b/min; TOTAL HEMOGLOBIN 13.4 G/dl (12.0-16.0)
[2018-02-27 20:00] VITALS: BP 144/85
[2018-02-27] MEDS: doxycycline inj 100 MG in normal saline 100ml IV soln 100 ML IV SCH (21:19)
[2018-02-27] MEDS: carvedilol 6.25mg tablet PO SCH (21:19)
[2018-02-27] MEDS: methylPREDNISolone sod succ 125mg/2ml vial IV SCH (21:19)
[2018-02-27 23:00] VITALS: BP 141/86
[2018-02-27] MEDS: HYDROcodone/acetaminophen 5mg/325mg tablet PO PRN (23:11)
[2018-02-27] MEDS: heparin, porcine 5000 units/ml vial SQ SCH (23:14)
[2018-02-28 02:44] VITALS: BP 140/88
[2018-02-28] MEDS ORDERED: morphine 10mg/0.5ml (conc. morphine) oral syringe PO PRN (04:00)
[2018-02-28 04:01] LABS: BASOPHILS % (AUTO) 0.2 % (0-1); EOSINOPHILS % (AUTO) 0.8 % (0-6); HEMATOCRIT 39.1 % (35.0-45.0); HEMOGLOBIN 12.5 g/dl (12.0-16.0); LYMPHOCYTES # (AUTO) 0.5 X10'3 (1.1-4.8); LYMPHOCYTES % (AUTO) 11.5 % (21-51); MEAN CORPUSCULAR HEMOGLOBIN 27.9 PG (27.0-31.0); MEAN CORPUSCULAR HGB CONC 31.9 % (33.0-36.5); MEAN CORPUSCULAR VOLUME 87.3 FL (78-98); MEAN PLATELET VOLUME 8.6 FL (7.4-10.4); MONOCYTES # (AUTO) 0.1 X10'3 (0-0.9); MONOCYTES % (AUTO) 2.3 % (2-12); NEUTROPHILS # (AUTO) 3.5 X10'3 (1.8-7.7); NEUTROPHILS % (AUTO) 85.2 % (42-75); PLATELET COUNT 118 X10'3 (140-440); RED BLOOD COUNT 4.48 X10'6 (4.20-5.60); RED CELL DISTRIBUTION WIDTH 18.5 % (11.5-14.5); WHITE BLOOD COUNT 4.1 X10'3 (4.5-11.0)
[2018-02-28 04:10] LABS: ALANINE AMINOTRANSFERASE 14 U/L (12-78); ALBUMIN 2.9 G/DL (3.4-5.0); ALBUMIN/GLOBULIN RATIO 0.9 (1.1-1.5); ALKALINE PHOSPHATASE 146 IU/L (46-116); ANION GAP 9 (8-16); ASPARTATE AMINO TRANSFERASE 34 U/L (10-37); BILIRUBIN,TOTAL 1.7 MG/DL (0.1-1.0); BLOOD UREA NITROGEN 11 MG/DL (7-18); BUN/CREATININE RATIO 13.3 (6.6-38.0); CALCIUM 7.9 MG/DL (8.5-10.1); CHLORIDE 106 MMOL/L (99-107); CREATININE 0.83 MG/DL (0.40-0.90); GLUCOSE 100 MG/DL (70-104); POTASSIUM 3.6 MMOL/L (3.5-5.1); SODIUM 142 MMOL/L (135-145); TOTAL CARBON DIOXIDE 27.2 MMOL/L (24-32); TOTAL PROTEIN 6.3 G/DL (6.4-8.2); eGFR 68 ML/MIN
[2018-02-28 04:13] LABS: CHOL/HDL RATIO 1.9 (0.00-4.99); CHOLESTEROL 127 MG/DL (0-200); HDL CHOLESTEROL 67 MG/DL (35-60); LDL CHOLESTEROL 53 MG/DL (50-100); MAGNESIUM 1.4 MG/DL (1.5-2.4); TRIGLYCERIDES 68 MG/DL (20-135)
[2018-02-28 06:00] VITALS: BP 139/69
[2018-02-28 06:45] LABS: ANISOCYTOSIS 2+; LARGE PLATELETS FEW; PLATELET ESTIMATE DECREASED; SMUDGE CELLS 1+; TOTAL CELLS COUNTED 100
[2018-02-28] MEDS: carvedilol 6.25mg tablet PO SCH ×2 (07:43→19:35)
[2018-02-28] MEDS: levoTHYROXINE 100mcg tablet PO SCH (07:44)
[2018-02-28] MEDS: methylPREDNISolone sod succ 125mg/2ml vial IV SCH ×2 (07:44→19:35)
[2018-02-28] MEDS: heparin, porcine 5000 units/ml vial SQ SCH ×2 (07:45→19:41)
[2018-02-28] MEDS ORDERED: furosemide 40mg/4ml inj IV SCH (08:00)
[2018-02-28] MEDS: doxycycline inj 100 MG in normal saline 100ml IV soln 100 ML IV SCH (08:00)
[2018-02-28] MEDS: K and/or MAG REPLACEMENT MC SCH (08:00)
[2018-02-28] MEDS ORDERED: magnesium Cl slow-release 64mg tablet PO PRN (09:15)
[2018-02-28] MEDS: ipratropium/albuterol 3ml nebule NEB SCH ×4 (10:34→23:01)
[2018-02-28 11:00] VITALS: BP 108/69
[2018-02-28] MEDS ORDERED: doxycycline inj 100 MG in normal saline 100ml IV soln 100 ML IV ONE (13:00)
[2018-02-28 15:45] VITALS: BP 118/62
[2018-02-28] MEDS: HYDROcodone/acetaminophen 5mg/325mg tablet PO PRN ×2 (16:10→21:52)
[2018-02-28] MEDS: CefTRIAXone/D5W-Rocephin 1gm 50 ML IV SCH (16:10)
[2018-02-28] MEDS: potassium Cl 20 mEq SR tablet PO SCH (17:25)
[2018-02-28 19:00] VITALS: BP 97/57
[2018-02-28 23:00] VITALS: BP 106/59
[2018-03-01 02:55] VITALS: BP 117/64
[2018-03-01] MEDS: ipratropium/albuterol 3ml nebule NEB SCH ×6 (02:56→22:41)
[2018-03-01] MEDS: HYDROcodone/acetaminophen 5mg/325mg tablet PO PRN ×2 (04:06→21:01)
[2018-03-01 06:11] LABS: ALANINE AMINOTRANSFERASE 14 U/L (12-78); ALBUMIN 3.1 G/DL (3.4-5.0); ALBUMIN/GLOBULIN RATIO 0.8 (1.1-1.5); ALKALINE PHOSPHATASE 154 IU/L (46-116); ANION GAP 10 (8-16); ASPARTATE AMINO TRANSFERASE 38 U/L (10-37); BILIRUBIN,TOTAL 1.2 MG/DL (0.1-1.0); BLOOD UREA NITROGEN 21 MG/DL (7-18); BUN/CREATININE RATIO 15.7 (6.6-38.0); CALCIUM 8.3 MG/DL (8.5-10.1); CHLORIDE 105 MMOL/L (99-107); CREATININE 1.34 MG/DL (0.40-0.90); GLUCOSE 177 MG/DL (70-104); MAGNESIUM 2.2 MG/DL (1.5-2.4); SODIUM 141 MMOL/L (135-145); TOTAL CARBON DIOXIDE 26.5 MMOL/L (24-32); TOTAL PROTEIN 6.9 G/DL (6.4-8.2); eGFR 39 ML/MIN
[2018-03-01 06:12] LABS: POTASSIUM 4.1 MMOL/L (3.5-5.1)
[2018-03-01 07:00] VITALS: BP 105/62
[2018-03-01] MEDS: CefTRIAXone/D5W-Rocephin 1gm 50 ML IV SCH (07:42)
[2018-03-01] MEDS: methylPREDNISolone sod succ 125mg/2ml vial IV SCH ×2 (07:42→21:01)
[2018-03-01] MEDS: levoTHYROXINE 100mcg tablet PO SCH (07:43)
[2018-03-01] MEDS: heparin, porcine 5000 units/ml vial SQ SCH ×2 (07:43→21:00)
[2018-03-01] MEDS: carvedilol 6.25mg tablet PO SCH ×2 (07:44→21:01)
[2018-03-01] MEDS: potassium Cl 20 mEq SR tablet PO SCH ×2 (07:44→17:51)
[2018-03-01] MEDS: K and/or MAG REPLACEMENT MC SCH (08:00)
[2018-03-01] MEDS: furosemide 40mg/4ml inj IV SCH ×2 (08:26→21:01)
[2018-03-01 11:00] VITALS: BP 123/70
[2018-03-01] MEDS: pantoprazole 40mg Tablet.DR PO SCH (11:43)
[2018-03-01 15:00] VITALS: BP 155/85
[2018-03-01 19:00] VITALS: BP 158/89
[2018-03-01 23:00] VITALS: BP 147/83
[2018-03-02] VITALS (7 sets, daily range): BP systolic 124–145; BP diastolic 46–87
[2018-03-02] MEDS ORDERED: ipratropium/albuterol 3ml nebule ONE (02:38)
[2018-03-02] MEDS: HYDROcodone/acetaminophen 5mg/325mg tablet PO PRN ×2 (06:33→19:47)
[2018-03-02 06:36] LABS: ALANINE AMINOTRANSFERASE 18 U/L (12-78); ALBUMIN/GLOBULIN RATIO 0.9 (1.1-1.5); ALKALINE PHOSPHATASE 146 IU/L (46-116); ANION GAP 10 (8-16); ASPARTATE AMINO TRANSFERASE 32 U/L (10-37); BLOOD UREA NITROGEN 25 MG/DL (7-18); BUN/CREATININE RATIO 22.1 (6.6-38.0); CALCIUM 8.1 MG/DL (8.5-10.1); CHLORIDE 103 MMOL/L (99-107); CREATININE 1.13 MG/DL (0.40-0.90); GLUCOSE 136 MG/DL (70-104); SODIUM 141 MMOL/L (135-145); TOTAL CARBON DIOXIDE 28.3 MMOL/L (24-32); TOTAL PROTEIN 6.5 G/DL (6.4-8.2); eGFR 48 ML/MIN
[2018-03-02] MEDS: pantoprazole 40mg Tablet.DR PO SCH (07:36)
[2018-03-02] MEDS: carvedilol 6.25mg tablet PO SCH ×2 (07:36→19:47)
[2018-03-02] MEDS: potassium Cl 20 mEq SR tablet PO SCH ×2 (07:36→17:33)
[2018-03-02] MEDS: levoTHYROXINE 100mcg tablet PO SCH (07:36)
[2018-03-02] MEDS: heparin, porcine 5000 units/ml vial SQ SCH ×2 (07:37→19:50)
[2018-03-02] MEDS: CefTRIAXone/D5W-Rocephin 1gm 50 ML IV SCH (07:37)
[2018-03-02] MEDS: furosemide 40mg/4ml inj IV SCH ×2 (07:40→19:48)
[2018-03-02] MEDS: methylPREDNISolone sod succ 125mg/2ml vial IV SCH (07:43)
[2018-03-02] MEDS: K and/or MAG REPLACEMENT MC SCH (07:52)
[2018-03-02] MEDS: ipratropium/albuterol 3ml nebule NEB SCH ×5 (08:44→22:31)
[2018-03-02] MEDS ORDERED: predniSONE 20 mg tablet PO ONE (15:00)
[2018-03-03] MEDS: ipratropium/albuterol 3ml nebule NEB SCH ×3 (02:59→12:00)
[2018-03-03 03:00] VITALS: BP 124/68
[2018-03-03 06:00] VITALS: BP 152/82
[2018-03-03 06:25] LABS: ALANINE AMINOTRANSFERASE 17 U/L (12-78); ALBUMIN 2.8 G/DL (3.4-5.0); ALBUMIN/GLOBULIN RATIO 0.8 (1.1-1.5); ALKALINE PHOSPHATASE 127 IU/L (46-116); ANION GAP 6 (8-16); ASPARTATE AMINO TRANSFERASE 27 U/L (10-37); BILIRUBIN,TOTAL 0.9 MG/DL (0.1-1.0); BLOOD UREA NITROGEN 25 MG/DL (7-18); BUN/CREATININE RATIO 25.8 (6.6-38.0); CALCIUM 7.8 MG/DL (8.5-10.1); CHLORIDE 101 MMOL/L (99-107); CREATININE 0.97 MG/DL (0.40-0.90); GLUCOSE 118 MG/DL (70-104); MAGNESIUM 1.7 MG/DL (1.5-2.4); POTASSIUM 4.2 MMOL/L (3.5-5.1); SODIUM 139 MMOL/L (135-145); TOTAL CARBON DIOXIDE 32.1 MMOL/L (24-32); TOTAL PROTEIN 6.1 G/DL (6.4-8.2); eGFR 57 ML/MIN
[2018-03-03] MEDS: K and/or MAG REPLACEMENT MC SCH (08:00)
[2018-03-03] MEDS ORDERED: predniSONE 20 mg tablet PO SCH (08:00)
[2018-03-03] MEDS: furosemide 40mg/4ml inj IV SCH (08:15)
[2018-03-03] MEDS: HYDROcodone/acetaminophen 5mg/325mg tablet PO PRN (08:16)
[2018-03-03] MEDS: levoTHYROXINE 100mcg tablet PO SCH (08:16)
[2018-03-03] MEDS: pantoprazole 40mg Tablet.DR PO SCH (08:16)
[2018-03-03] MEDS: carvedilol 6.25mg tablet PO SCH (08:16)
[2018-03-03] MEDS: CefTRIAXone/D5W-Rocephin 1gm 50 ML IV SCH (08:17)
[2018-03-03] MEDS: heparin, porcine 5000 units/ml vial SQ SCH (08:17)
[2018-03-03] MEDS: potassium Cl 20 mEq SR tablet PO SCH (08:30)
[2018-03-03 11:00] VITALS: BP 117/70
[2018-03-03] MEDS ORDERED: PRED10TA23 PO (12:10)
[2018-03-03] MEDS ORDERED: DOXY100C2 PO (12:10)
== END 2018-03-03 15:00 | disposition home health service (06) | DRG 291 ==
LOC: ER 15:26 → ED HOLD 16:43 → PCU 3S 20:17
PROVIDERS: ADMIT Family Medicine; ATTEND Family Medicine
DX: I11.0 Hypertensive heart disease with heart failure (principal); J96.20 Acute and chronic respiratory failure, unspecified whether with hypoxia or hypercapnia; J44.1 Chronic obstructive pulmonary disease with (acute) exacerbation; I50.33 Acute on chronic diastolic (congestive) heart failure; R94.6 Abnormal results of thyroid function studies; E78.5 Hyperlipidemia, unspecified; I27.20 Pulmonary hypertension, unspecified; Z60.2 Problems related to living alone; E03.9 Hypothyroidism, unspecified; E78.00 Pure hypercholesterolemia, unspecified; E87.6 Hypokalemia; I25.10 Atherosclerotic heart disease of native coronary artery without angina pectoris; Z99.81 Dependence on supplemental oxygen; I25.2 Old myocardial infarction; Z79.899 Other long term (current) drug therapy; Z87.891 Personal history of nicotine dependence; Z82.49 Family history of ischemic heart disease and other diseases of the circulatory system
CPT/HCPCS: 36415; 36600; 71045; 80053; 80061; 81001; 82803; 83735; 83880; 84439; 84443; 84484; 85018; 85025; 87070; 93005; 93306; 94640; 94760; 96360; 99285; G0378; J0696; J1644; J1940; J2930; J3475; J3490; J7030; J7512

== ENCOUNTER 2018-03-20 10:14 | Inpatient (IN) | payer MEDICARE, MEDICAID ==
[~2018-03-20] VITALS: Ht 160 cm; Wt 67.0 kg
[~2018-03-20 10:14] MED LIST changes: +DOXY100C2 PO; -HYDR-4353 PO; +PRED10TA23 PO
[2018-03-20] MEDS ORDERED: methylPREDNISolone sod succ 125mg/2ml vial IV ONE (11:10)
[2018-03-20] MEDS ORDERED: ipratropium/albuterol 3ml nebule NEB ONE ×2 (11:10→12:45)
[2018-03-20] MEDS ORDERED: levoFLOXACIN 750MG TABLET PO ONE (11:10)
[2018-03-20] MEDS ORDERED: LORazepam 2 mg/ml vial IV ONE (11:10)
[2018-03-20 11:46] LABS: BASOPHILS % (AUTO) 0.8 % (0-1); EOSINOPHILS # (AUTO) 0.1 X10'3 (0-0.9); EOSINOPHILS % (AUTO) 1.1 % (0-6); HEMOGLOBIN 14.2 g/dl (12.0-16.0); LYMPHOCYTES # (AUTO) 0.7 X10'3 (1.1-4.8); LYMPHOCYTES % (AUTO) 12.1 % (21-51); MEAN CORPUSCULAR HEMOGLOBIN 28.4 PG (27.0-31.0); MEAN CORPUSCULAR HGB CONC 31.6 % (33.0-36.5); MEAN CORPUSCULAR VOLUME 89.9 FL (78-98); MEAN PLATELET VOLUME 9.6 FL (7.4-10.4); MONOCYTES # (AUTO) 0.4 X10'3 (0-0.9); MONOCYTES % (AUTO) 6.7 % (2-12); NEUTROPHILS % (AUTO) 79.3 % (42-75); PLATELET COUNT 94 X10'3 (140-440); RED BLOOD COUNT 5.01 X10'6 (4.20-5.60); WHITE BLOOD COUNT 6.2 X10'3 (4.5-11.0)
[2018-03-20 12:00] LABS: ALANINE AMINOTRANSFERASE 37 U/L (12-78); ALBUMIN/GLOBULIN RATIO 1.2 (1.1-1.5); ALKALINE PHOSPHATASE 167 IU/L (46-116); ANION GAP 13 (8-16); ASPARTATE AMINO TRANSFERASE 37 U/L (10-37); BILIRUBIN,TOTAL 1.5 MG/DL (0.1-1.0); BLOOD UREA NITROGEN 25 MG/DL (7-18); BUN/CREATININE RATIO 20.2 (6.6-38.0); CALCIUM 8.9 MG/DL (8.5-10.1); CHLORIDE 102 MMOL/L (99-107); CREATININE 1.24 MG/DL (0.40-0.90); GLUCOSE 86 MG/DL (70-104); POTASSIUM 3.4 MMOL/L (3.5-5.1); SODIUM 142 MMOL/L (135-145); TOTAL CARBON DIOXIDE 27.5 MMOL/L (24-32); TOTAL PROTEIN 7.4 G/DL (6.4-8.2); eGFR 43 ML/MIN
[2018-03-20 12:03] LABS: INR 1.1 INR; PARTIAL THROMBOPLASTIN TIME 27 SECONDS (22-32)
[2018-03-20 12:08] LABS: TROPONIN I 0.06 NG/ML (0.0-0.05)
[2018-03-20] MEDS ORDERED: potassium Cl 20 mEq SR tablet PO STA (12:11)
[2018-03-20] MEDS ORDERED: furosemide 10 MG/1 ML 10ml inj IV ONE (12:15)
[2018-03-20] MEDS ORDERED: aspirin 325mg tablet PO ONE (12:15)
[2018-03-20] MEDS: potassium 10mEq/100ml NS w/LIDOcaine (10mg/bag) IV SCH ×2 (12:27→13:29)
[2018-03-20] MEDS ORDERED: potassium Cl 20 mEq SR tablet PO PRN (12:50)
[2018-03-20] MEDS ORDERED: mag hydrox/Alum hydrox/simeth 30ml oral suspension PO PRN (12:50)
[2018-03-20] MEDS ORDERED: albuterol 2.5 MG/3 ML nebule NEB PRN (12:50)
[2018-03-20] MEDS ORDERED: potassium Cl 40MEQ/NS 500ml 500 ML IV PRN ×2 (12:50)
[2018-03-20] MEDS ORDERED: HYDROcodone/acetaminophen 5mg/325mg tablet PO PRN (12:50)
[2018-03-20] MEDS ORDERED: acetaminophen 325mg tablet PO PRN ×2 (12:50)
[2018-03-20] MEDS ORDERED: magnesium hydroxide 30ml (MOM) UD suspension PO PRN (12:50)
[2018-03-20] MEDS ORDERED: FURO-149 PO (12:57)
[2018-03-20] MEDS ORDERED: LISI-644 PO (13:13)
[2018-03-20] MEDS ORDERED: potassium 10mEq/100ml NS w/LIDOcaine (10mg/bag) IV ONE (13:30)
[2018-03-20] MEDS ORDERED: non-formulary drug (Alendronate Sodium (Fosamax) 1 TAB) PO SCH (14:50)
[2018-03-20 15:00] VITALS: BP 136/94
--- NOTE | 2018-03-20 15:30 | NUR ---
Pt. arrived from the ER. Pt. was able to stand and walk to other bed in the room. Pt. did not have any complaints. No skin issues were noted. Pt's vitals taken and patient placed on tele.
[2018-03-20] MEDS: ipratropium/albuterol 3ml nebule NEB SCH ×3 (16:12→23:24)
[2018-03-20] MEDS: furosemide 40mg/4ml inj IV SCH (16:44)
--- NOTE | 2018-03-20 18:14 | NUR ---
Patient in room PCU 3015. I have received report from RAMIRO Murguia and had the opportunity to ask questions and assume patient care.
--- NOTE | 2018-03-20 18:15 | NUR ---
Problems reprioritized. Patient report given, questions answered & plan of care reviewed with Lana RUBIO.
[2018-03-20 19:00] VITALS: BP 123/80
[2018-03-20] MEDS ORDERED: doxycycline inj 100 MG in normal saline 100ml IV soln 100 ML IV SCH (20:00)
[2018-03-20] MEDS: HYDROcodone/acetaminophen 10/325mg tab PO PRN (20:38)
[2018-03-20] MEDS: methylPREDNISolone sod succ 125mg/2ml vial IV SCH (20:38)
[2018-03-20] MEDS: carvedilol 6.25mg tablet PO SCH (20:38)
[2018-03-20] MEDS: docusate sod 100mg capsule PO SCH (20:39)
[2018-03-20] MEDS ORDERED: temazepam 15mg capsule PO PRN (21:00)
[2018-03-20 23:00] VITALS: BP 143/78
[2018-03-21] MEDS: furosemide 40mg/4ml inj IV SCH ×3 (00:51→17:26)
[2018-03-21 03:00] VITALS: BP 126/80
[2018-03-21] MEDS: ipratropium/albuterol 3ml nebule NEB SCH ×6 (03:54→23:33)
[2018-03-21 05:34] LABS: BASOPHILS % (AUTO) 0.1 % (0-1); EOSINOPHILS % (AUTO) 0.1 % (0-6); HEMATOCRIT 42.7 % (35.0-45.0); LYMPHOCYTES # (AUTO) 0.5 X10'3 (1.1-4.8); LYMPHOCYTES % (AUTO) 9.4 % (21-51); MEAN CORPUSCULAR HEMOGLOBIN 29.3 PG (27.0-31.0); MEAN CORPUSCULAR HGB CONC 32.8 % (33.0-36.5); MEAN CORPUSCULAR VOLUME 89.3 FL (78-98); MEAN PLATELET VOLUME 9.7 FL (7.4-10.4); MONOCYTES # (AUTO) 0.1 X10'3 (0-0.9); MONOCYTES % (AUTO) 1.8 % (2-12); NEUTROPHILS # (AUTO) 4.4 X10'3 (1.8-7.7); NEUTROPHILS % (AUTO) 88.6 % (42-75); PLATELET COUNT 85 X10'3 (140-440); RED BLOOD COUNT 4.78 X10'6 (4.20-5.60); RED CELL DISTRIBUTION WIDTH 18.2 % (11.5-14.5)
[2018-03-21 05:54] LABS: ANION GAP 12 (8-16); BLOOD UREA NITROGEN 25 MG/DL (7-18); CALCIUM 7.9 MG/DL (8.5-10.1); CHLORIDE 101 MMOL/L (99-107); CREATININE 1.04 MG/DL (0.40-0.90); GLUCOSE 140 MG/DL (70-104); POTASSIUM 3.1 MMOL/L (3.5-5.1); SODIUM 140 MMOL/L (135-145); eGFR 53 ML/MIN
--- NOTE | 2018-03-21 06:33 | NUR ---
Problems reprioritized. Patient report given, questions answered & plan of care reviewed with Yoanna RN.
[2018-03-21 07:00] VITALS: BP 127/60
[2018-03-21] MEDS ORDERED: non-formulary drug (Tiotropium Bromide (SPIRIVA inhaler) 1 CAP) INH SCH (08:00)
[2018-03-21] MEDS ORDERED: enoxaparin 40mg/0.4ml syringe SUBCUT SCH (08:00)
[2018-03-21] MEDS: K and/or MAG REPLACEMENT MC SCH (08:00)
[2018-03-21] MEDS: carvedilol 6.25mg tablet PO SCH ×2 (08:17→19:42)
[2018-03-21] MEDS: levoTHYROXINE 100mcg tablet PO SCH (08:17)
[2018-03-21] MEDS: docusate sod 100mg capsule PO SCH ×2 (08:17→19:42)
[2018-03-21] MEDS: lisinopril 20mg tablet PO SCH (08:18)
[2018-03-21] MEDS: methylPREDNISolone sod succ 125mg/2ml vial IV SCH ×2 (08:18→19:42)
[2018-03-21] MEDS: DOXYCYCLINE 100MG CAPSULE PO SCH ×2 (08:47→17:26)
[2018-03-21 11:00] VITALS: BP 130/80
[2018-03-21] MEDS: potassium Cl 20 mEq SR tablet PO PRN ×2 (12:24→17:26)
[2018-03-21] MEDS: HYDROcodone/acetaminophen 10/325mg tab PO PRN ×2 (12:29→19:42)
[2018-03-21] MEDS: ondansetron/PF 4mg/2ml inj IV PRN ×2 (12:35→19:42)
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
--- NOTE | 2018-03-21 13:35 | NUR ---
PATIENT STATES" SHE " FEELS MUCH BETTER, NO MORE NAUSEA ; AND PAIN IS GONE. UP CHAIR, CALL LIGHT IN REACH. Addendum: 03/21/18 at 1510 by Pallavi Nails RN Amended: Links added.
[2018-03-21 15:00] VITALS: BP 93/64
--- NOTE | 2018-03-21 18:00 | NUR ---
Patient in room PCU 3015. I have received report from RAMIRO Lenz and had the opportunity to ask questions and assume patient care.
[2018-03-21 19:00] VITALS: BP 125/79
[2018-03-21] MEDS: lactobacillus rhamnosus 10,000 MMU CELLS/CAPSULE PO SCH (19:43)
[2018-03-21 23:00] VITALS: BP 100/58
[2018-03-22] MEDS: furosemide 40mg/4ml inj IV SCH ×3 (00:37→15:32)
[2018-03-22 03:00] VITALS: BP 107/77
[2018-03-22] MEDS: ipratropium/albuterol 3ml nebule NEB SCH ×6 (03:48→23:43)
[2018-03-22 05:53] LABS: ALBUMIN 3.3 G/DL (3.4-5.0); ANION GAP 10 (8-16); BLOOD UREA NITROGEN 28 MG/DL (7-18); BUN/CREATININE RATIO 21.4 (6.6-38.0); CHLORIDE 100 MMOL/L (99-107); CREATININE 1.31 MG/DL (0.40-0.90); GLUCOSE 144 MG/DL (70-104); POTASSIUM 3.4 MMOL/L (3.5-5.1); SODIUM 142 MMOL/L (135-145); TOTAL CARBON DIOXIDE 32.5 MMOL/L (24-32); eGFR 40 ML/MIN
[2018-03-22 05:59] LABS: BASOPHILS % (AUTO) 0 % (0-1); EOSINOPHILS % (AUTO) 0 % (0-6); HEMATOCRIT 42.7 % (35.0-45.0); HEMOGLOBIN 13.9 g/dl (12.0-16.0); LYMPHOCYTES # (AUTO) 0.5 X10'3 (1.1-4.8); LYMPHOCYTES % (AUTO) 4.4 % (21-51); MEAN CORPUSCULAR HEMOGLOBIN 29.1 PG (27.0-31.0); MEAN CORPUSCULAR HGB CONC 32.5 % (33.0-36.5); MEAN CORPUSCULAR VOLUME 89.3 FL (78-98); MEAN PLATELET VOLUME 9.3 FL (7.4-10.4); MONOCYTES # (AUTO) 0.2 X10'3 (0-0.9); MONOCYTES % (AUTO) 1.5 % (2-12); NEUTROPHILS # (AUTO) 11.2 X10'3 (1.8-7.7); NEUTROPHILS % (AUTO) 94.1 % (42-75); PLATELET COUNT 106 X10'3 (140-440); RED BLOOD COUNT 4.78 X10'6 (4.20-5.60); RED CELL DISTRIBUTION WIDTH 18.8 % (11.5-14.5); WHITE BLOOD COUNT 11.9 X10'3 (4.5-11.0)
[2018-03-22 06:00] VITALS: BP 126/75
--- NOTE | 2018-03-22 06:24 | NUR ---
Problems reprioritized. Patient report given, questions answered & plan of care reviewed with Art, RN.
[2018-03-22] MEDS: carvedilol 6.25mg tablet PO SCH ×2 (07:25→20:53)
[2018-03-22] MEDS: lactobacillus rhamnosus 10,000 MMU CELLS/CAPSULE PO SCH ×2 (07:25→20:53)
[2018-03-22] MEDS: lisinopril 20mg tablet PO SCH (07:25)
[2018-03-22] MEDS: docusate sod 100mg capsule PO SCH ×2 (07:25→20:53)
[2018-03-22] MEDS: levoTHYROXINE 100mcg tablet PO SCH (07:25)
[2018-03-22] MEDS: potassium Cl 20 mEq SR tablet PO PRN ×2 (07:25→14:24)
[2018-03-22] MEDS: methylPREDNISolone sod succ 125mg/2ml vial IV SCH ×2 (07:26→20:53)
[2018-03-22] MEDS: enoxaparin 40mg/0.4ml syringe SQ SCH (07:27)
[2018-03-22] MEDS: DOXYCYCLINE 100MG CAPSULE PO SCH ×2 (07:32→17:43)
[2018-03-22] MEDS: K and/or MAG REPLACEMENT MC SCH (08:00)
[2018-03-22 11:00] VITALS: BP 111/70
--- NOTE | 2018-03-22 14:37 | NUR ---
Pt states that she hasnt had a BM since her admit date. [employer] provided.
[2018-03-22 15:00] VITALS: BP 108/67
[2018-03-22] MEDS: HYDROcodone/acetaminophen 10/325mg tab PO PRN (15:32)
[2018-03-22 18:00] VITALS: BP 127/76
--- NOTE | 2018-03-22 18:31 | NUR ---
Received report from Johnny, RN. Patient is awake and alert on 2L NC, in no apparent distress. Call light and items of frequent use within reach. Will continue to monitor.
[2018-03-22 22:00] VITALS: BP 91/53
[2018-03-23] MEDS: furosemide 40mg/4ml inj IV SCH ×2 (01:00→07:10)
[2018-03-23 02:00] VITALS: BP 106/60
[2018-03-23] MEDS: ipratropium/albuterol 3ml nebule NEB SCH ×3 (03:39→11:26)
[2018-03-23] MEDS: HYDROcodone/acetaminophen 10/325mg tab PO PRN ×2 (05:00→13:31)
[2018-03-23 06:00] VITALS: BP 99/66
[2018-03-23 06:08] LABS: ALBUMIN 3.5 G/DL (3.4-5.0); ANION GAP 9 (8-16); BLOOD UREA NITROGEN 37 MG/DL (7-18); BUN/CREATININE RATIO 28.5 (6.6-38.0); CALCIUM 8.4 MG/DL (8.5-10.1); CHLORIDE 98 MMOL/L (99-107); GLUCOSE 142 MG/DL (70-104); POTASSIUM 3.6 MMOL/L (3.5-5.1); SODIUM 141 MMOL/L (135-145); TOTAL CARBON DIOXIDE 33.8 MMOL/L (24-32); eGFR 41 ML/MIN
[2018-03-23 06:10] LABS: BASOPHILS % (AUTO) 0 % (0-1); EOSINOPHILS % (AUTO) 0 % (0-6); HEMATOCRIT 45.6 % (35.0-45.0); HEMOGLOBIN 14.5 g/dl (12.0-16.0); LYMPHOCYTES # (AUTO) 0.5 X10'3 (1.1-4.8); LYMPHOCYTES % (AUTO) 4.7 % (21-51); MEAN CORPUSCULAR HEMOGLOBIN 28.6 PG (27.0-31.0); MEAN CORPUSCULAR HGB CONC 31.8 % (33.0-36.5); MEAN PLATELET VOLUME 9.6 FL (7.4-10.4); MONOCYTES # (AUTO) 0.2 X10'3 (0-0.9); MONOCYTES % (AUTO) 1.7 % (2-12); NEUTROPHILS # (AUTO) 10.5 X10'3 (1.8-7.7); NEUTROPHILS % (AUTO) 93.6 % (42-75); PLATELET COUNT 108 X10'3 (140-440); RED BLOOD COUNT 5.07 X10'6 (4.20-5.60); RED CELL DISTRIBUTION WIDTH 18.4 % (11.5-14.5); WHITE BLOOD COUNT 11.2 X10'3 (4.5-11.0)
--- NOTE | 2018-03-23 06:15 | NUR ---
Problems reprioritized. Patient report given, questions answered & plan of care reviewed with Art, RN.
[2018-03-23] MEDS: methylPREDNISolone sod succ 125mg/2ml vial IV SCH (07:09)
[2018-03-23] MEDS: enoxaparin 40mg/0.4ml syringe SQ SCH (07:10)
[2018-03-23] MEDS: levoTHYROXINE 100mcg tablet PO SCH (07:10)
[2018-03-23] MEDS: docusate sod 100mg capsule PO SCH (07:10)
[2018-03-23] MEDS: carvedilol 6.25mg tablet PO SCH (07:10)
[2018-03-23] MEDS: lactobacillus rhamnosus 10,000 MMU CELLS/CAPSULE PO SCH (07:10)
[2018-03-23] MEDS: K and/or MAG REPLACEMENT MC SCH (08:00)
[2018-03-23] MEDS: lisinopril 20mg tablet PO SCH (08:36)
[2018-03-23] MEDS: DOXYCYCLINE 100MG CAPSULE PO SCH (08:36)
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
[2018-03-23 11:00] VITALS: BP 121/61
--- NOTE | 2018-03-23 13:38 | NUR ---
pt IV removed, tip intact. Pt property bagged and given to pt. Report called to RAMIRO lang at [facility]. Pt assisted to and transported by [facility].
== END 2018-03-23 13:35 | DRG 189 ==
LOC: ER 10:15 → ED HOLD 12:46 → PCU 3S 15:35 → CMPBEDREQ 03-21 19:27 → PCU 3S 03-22 12:55
PROVIDERS: ADMIT Hospitalist; ATTEND Internal Medicine
DX: J96.20 Acute and chronic respiratory failure, unspecified whether with hypoxia or hypercapnia (principal); J44.1 Chronic obstructive pulmonary disease with (acute) exacerbation; M48.56XA Collapsed vertebra, not elsewhere classified, lumbar region, initial encounter for fracture; I11.0 Hypertensive heart disease with heart failure; I50.813 Acute on chronic right heart failure; M85.80 Other specified disorders of bone density and structure, unspecified site; E87.6 Hypokalemia; I27.81 Cor pulmonale (chronic); Z60.2 Problems related to living alone; E03.9 Hypothyroidism, unspecified; E78.00 Pure hypercholesterolemia, unspecified; Z96.651 Presence of right artificial knee joint; R74.8 Abnormal levels of other serum enzymes; Z66 Do not resuscitate; I25.2 Old myocardial infarction; Z99.81 Dependence on supplemental oxygen; Z79.899 Other long term (current) drug therapy; Z87.891 Personal history of nicotine dependence; Z82.49 Family history of ischemic heart disease and other diseases of the circulatory system
CPT/HCPCS: 36415; 71045; 80048; 80053; 83880; 84484; 85025; 85610; 85730; 93005; 94640; 94760; 96374; 96375; 97116; 97162; 97530; 99285; G0378; J1650; J1940; J2060; J2405; J2930; J3480; J3490; J7030